=== PATIENT | male | born 1975 | race Two or more races ===

== ENCOUNTER 2016-10-14 12:48 | Observation (INO) | payer OTHER ==
[2016-10-14] MEDS ORDERED: NS 1000 ML 1,000 ML IV ONE ×2 (13:05→14:46)
--- NOTE | 2016-10-14 13:07 | DR.GENAD ---
HPI - PCP Primary Care Physician: Mark AZUL - HPI Comment HPI Comment: PATIENT WENT TO SEE AERODYNAMIC CONSULTANT DR. ZUNIGA. HE REFER PATIENT TO ED FOR FORTHER EVALUATION. HE IS HAVING DYSPHAGIA CAUSING HIM NOT TO EAT. WAS DRINKING POORLY AND NOW NOT DRINKING. ON DIFLUCAN AND MEDROL DOSE PACK. EYES ARE RED AND PAINFULL. NO FEVER. ILLNESS STARTED AFTER ASTHMA ATTACK RECENT. SEE NURSING NOTE. - Complaint/Symptoms Chief Complaint Doctors Comments: SORE THROAT, DYSPHAGIA AND BILATERAL EYE REDNESS AND PAIN TIMES SEVERAL DAYS. Chief Complaint:: PT. HAD AN ASTHMA ATTACK LAST WEEK AND USED HIS INHALERS. PT. THEN GOT THRUSH MONDAY. PT. WAS PLACED ON DIFLUCAN FOR THRUSH AND IT HAS WORSENED. PT. WENT TO THE EYE DOCTOR TODAY AND WAS SENT TO THE ER. PT. UNABLE TO EAT/DRINK AND HAS LOST 15 LBS IN 10 DAYS. - Nurses notes reviewed Nurses Notes Review: Yes - Source History Provided: Patient - Mode of Arrival Mode of Arrival: Ambulatory - Timing Onset of Chief Complaint: 10/10/16 Came on: Suddenly - Duration Duration: Constant Duration: Days - Severity Severity: Severe PMH - PMH Past Medical History: Yes Past Medical History: Asthma Past Surgical History: Yes Surgical History: Other Past Surgical History Comment: DEVIATED SEPTUM REPAIR, SINUS SURGERY X 4 - Family History History of Family Medical Conditions: No - Social History Does patient currently use any type of tobacco product: Yes Have you used tobacco products in the last 12 months: Yes Type of Tobacco Use: Cigarettes Does any household member use tobacco: No Alcohol Use: None Do you use any recreational Drugs:: No Lives With: Significant Other Lives Where: Home - infectious screening In the last 2 months have you had wt loss of >10#?: NO Have you had fever, night sweats or hemotysis?: No Have you traveled outside the country in the last 6 months?: No Isolation: Standard ROS - Review of Systems Constitutional: Weakness, Fatigue. negative: Chills, Fever Eyes: Eye Pain, Other (BILATERAL REDNESS OF EYES.) ENTM: Mouth Pain (PATIENT SPITTING MUCOUS AND SALIVA.), Throat Pain, Throat Swelling. negative: Ear Pain, Nose Discharge, Nose Congestion Respiratoy: Non-Productive Cough. negative: Productive Cough, Short of Breath, Wheezing, Hemoptysis Cardiovascular: Palpitations. negative: Chest Pain, Edema Gastrointestinal/Abdominal: Other (SPITTING MUCOUS AND SALIVA). negative: Abdominal Pain, Diarrhea, Nausea, Vomiting Genitourinary: No Symptoms Reported Neurological: Weakness Musculoskeletal: Muscle Pain Integumentary: No Symptoms Reported Hematologic/Lymphatic: No Symptoms Reported Endocrine: No Symptoms Reported All Other Systems: Reviewed and Negative PE - Vital Signs Vitals: Temperature 98.3 F Pulse Rate [Left Radial] 114 Pulse Rate 135 Respiratory Rate 17 Blood Pressure 131/87 O2 Sat by Pulse Oximetry 97 - General Limitations: No Limitations General Appearance: Alert - Head Head Exam: Normal Inspection - Eyes Eye exam: PERRL, EOMI, Conjunctival Injection (BILATERAL) - ENT ENT Exam: Normal External Ear Exam External Ear Exam: Normal External Inspection TM/Canal Exam: Bilateral Normal Nose Exam: Normal Nose Exam Mouth Exam: Normal Inspection Throat Exam: Tonsillar Erythema, Tonsillomegaly, Other (THROAT AND MOUTH WITH WHITISH COLORATION.). negative: Tonsillar Exudate - Neck Neck Exam: Trachea Midline. negative: Tenderness, Meningismus, Lymphadenopathy - Chest Chest Inspection: Symmetric Chest Wall Rise - Respiratory Respiratory Exam: Normal Lung Sounds Bilat Respiratory Exam: Bilateral Clear to Auscultation - Cardiovascular Cardiovascular Exam: Normal Rhythm, Tachycardia, Normal Heart Sounds - Abdominal Exam Abdominal Exam: Normal Inspection - Extremities Extremities Exam: Normal Inspection - Back Back Exam: Normal Inspection - Neurologic Neurological Exam: Alert, Oriented X3 - Psychiatric Psychiatric Exam: Normal Affect, Normal Mood - Skin Skin Exam: Dry MDM - Additional Information Additional Information Obtained From: Family - Differential Diagnosis Differential Diagnosis: THRUSH THROAT, DYSPHAGIA, DEHYDRATION, Course - Treatment Treatment: SEE ORDEDRS. - Education/Counseling Education/Counseling: Patient, Family, Education Educated On: Treatment, Diagnosis ROR - Labs Reviewed Laboratory Results Reviewed?: Yes Result Diagrams: 10/14/16 13:15 10/14/16 13:15 Laboratory: WBC 22.9 X10^3/uL (3.6-10.0) H* 10/14/16 13:15 RBC 5.38 X10^6/uL (4.7-6.0) 10/14/16 13:15 Hgb 17.5 g/dL (13.5-18.0) 10/14/16 13:15 Hct 49.3 % (42.0-54.0) 10/14/16 13:15 MCV 91.6 fL (80.0-100.0) 10/14/16 13:15 MCH 32.5 pg (27.0-34.0) 10/14/16 13:15 MCHC 35.5 g/dL (33.0-35.0) H 10/14/16 13:15 RDW 13.8 % (11.6-16.5) 10/14/16 13:15 Plt Count 459 X10^3/uL (150.0-450.0) H 10/14/16 13:15 Plt Count Comment Adequate (ADEQUATE) 10/14/16 13:15 MPV 7.1 fL (7.4-11.0) L 10/14/16 13:15 Neut % 81.4 % (42.0-75.0) H 10/14/16 13:15 Lymph % 8.1 % (21.0-51.0) L 10/14/16 13:15 [place] % 10.1 % (0.0-13.0) 10/14/16 13:15 Eos % 0.1 % (0.9-2.9) L 10/14/16 13:15 Baso % 0.3 % (0.2-1.0) 10/14/16 13:15 Neut # 18.6 x10^3/uL (2.2-4.8) H 10/14/16 13:15 Lymph # 1.8 X10^3/uL (1.3-2.9) 10/14/16 13:15 [place] # 2.3 x10^3/uL (0.3-0.8) H 10/14/16 13:15 Eos # 0.0 x10^3/uL (0.0-0.2) 10/14/16 13:15 Baso # 0.1 X10^3/uL (0.0-0.1) 10/14/16 13:15 Absolute Nucleated RBC 0.3 /100WBC 10/14/16 13:15 Total Counted 100 10/14/16 13:15 Neutrophils % (Manual) 77 % (39-76) H 10/14/16 13:15 Band Neutrophils % 12 % (0-10) H 10/14/16 13:15 Lymphocytes % (Manual) 4 % (13-43) L 10/14/16 13:15 Monocytes % (Manual) 5 % (4-9) 10/14/16 13:15 Eosinophils % (Manual) 1 % (0-6) 10/14/16 13:15 Basophils % (Manual) 1 % (0-1) 10/14/16 13:15 Plt Morphology Comment Normal (NORMAL) 10/14/16 13:15 RBC Morphology Normal (NORMAL) 10/14/16 13:15 Sodium 132 mmol/L (136-145) L 10/14/16 13:15 Corrected Sodium 132 mmol/L (136-145) L 10/14/16 13:15 Potassium 4.3 mmol/L (3.5-5.1) 10/14/16 13:15 Chloride 94 mmol/L (98-107) L 10/14/16 13:15 Carbon Dioxide 19.8 mmol/L (21-32) L 10/14/16 13:15 BUN 32 mg/dL (7-18) H 10/14/16 13:15 Creatinine 0.98 mg/dL (0.70-1.30) 10/14/16 13:15 Est GFR (MDRD) Af Amer > 60 (>60) 10/14/16 13:15 Est GFR (MDRD) Non-Af > 60 (>60) 10/14/16 13:15 Glucose 116 mg/dL (65-99) H 10/14/16 13:15 Calcium 9.4 mg/dL (8.5-10.1) 10/14/16 13:15 Corrected Calcium TNP 10/14/16 13:15 Total Bilirubin 0.80 mg/dL (0.2-1.0) 10/14/16 13:15 AST 20 Units/L (15-37) 10/14/16 13:15 ALT 44 Units/L (12-78) 10/14/16 13:15 Alkaline Phosphatase 107 Units/L (46-116) 10/14/16 13:15 Total Protein 9.1 g/dL (6.4-8.2) H 10/14/16 13:15 Albumin 3.6 g/dL (3.4-5.0) 10/14/16 13:15 Globulin 5.5 g/dL (2.5-4.5) H 10/14/16 13:15 Albumin/Globulin Ratio 0.7 Ratio (1.1-2.1) L 10/14/16 13:15 Streptococcus Screen Negative (NEGATIVE) 10/14/16 13:20 - Diagnosis Discharge Problem: Halle albicans infection, Dehydration Dysphagia Qualifiers: Dysphagia type: oropharyngeal phase Qualified Code(s): R13.12 - Dysphagia, oropharyngeal phase Conjunctivitis Qualifiers: Conjunctivitis type: acute Acute conjunctivitis type: unspecified Laterality: bilateral Qualified Code(s): H10.33 - Unspecified acute conjunctivitis, bilateral - Discharge Plan Condition: Stable - Follow ups/Referrals Follow ups/Referrals: CHANNING AZUL [Primary Care Provider] - 3 days - Instructions
[2016-10-14] MEDS ORDERED: NS 1000 ML 1,000 ML ONE ×2 (13:25→14:47)
[2016-10-14 13:43] LABS: BASOPHILS # (AUTO) 0.1 X10^3/uL (0.0-0.1); BASOPHILS % (AUTO) 0.3 % (0.2-1.0); EOSINOPHILS % (AUTO) 0.1 % (0.9-2.9); HEMATOCRIT 49.3 % (42.0-54.0); HEMOGLOBIN 17.5 g/dL (13.5-18.0); LYMPHOCYTES # (AUTO) 1.8 X10^3/uL (1.3-2.9); LYMPHOCYTES % (AUTO) 8.1 % (21.0-51.0); MEAN CORPUSCULAR HEMOGLOBIN 32.5 pg (27.0-34.0); MEAN CORPUSCULAR HGB CONC 35.5 g/dL (33.0-35.0); MEAN CORPUSCULAR VOLUME 91.6 fL (80.0-100.0); MEAN PLATELET VOLUME 7.1 fL (7.4-11.0); MONOCYTES # (AUTO) 2.3 x10^3/uL (0.3-0.8); MONOCYTES % (AUTO) 10.1 % (0.0-13.0); NEUTROPHILS # (AUTO) 18.6 x10^3/uL (2.2-4.8); NEUTROPHILS % (AUTO) 81.4 % (42.0-75.0); PLATELET COUNT 459 X10^3/uL (150.0-450.0); RED BLOOD COUNT 5.38 X10^6/uL (4.7-6.0); RED CELL DISTRIBUTION WIDTH 13.8 % (11.6-16.5)
[2016-10-14 13:53] LABS: BLOOD UREA NITROGEN 32 mg/dL (7-18); CALCIUM 9.4 mg/dL (8.5-10.1); CARBON DIOXIDE 19.8 mmol/L (21-32); CHLORIDE 94 mmol/L (98-107); COR NA(FOR HYPERGLY) 132 mmol/L (136-145); CREATININE 0.98 mg/dL (0.70-1.30); GLUCOSE 116 mg/dL (65-99); SODIUM 132 mmol/L (136-145); eGFR BLACK RACES > 60 (>60); eGFR NON BLACK RACES > 60 (>60)
[2016-10-14 13:55] LABS: WHITE BLOOD COUNT 22.9 X10^3/uL (3.6-10.0)
[2016-10-14 13:59] LABS: BAND NEUTROPHILS % 12 % (0-10); BASOPHILS % (MANUAL) 1 % (0-1)
[2016-10-14 14:00] LABS: PLATELET MORPHOLOGY COMMENT NORMAL (NORMAL)
[2016-10-14] MEDS ORDERED: DEMEROL INJ IVP ONE (14:05)
[2016-10-14] MEDS ORDERED: ZOFRAN INJ 4 MG VIAL IVP ONE (14:05)
[2016-10-14] MEDS ORDERED: ZOFRAN INJ 4 MG VIAL ONE (14:11)
[2016-10-14] MEDS ORDERED: DEMEROL INJ ONE (14:11)
[2016-10-14 14:25] LABS: ALANINE AMINOTRANSFERASE 44 Units/L (12-78); ALBUMIN 3.6 g/dL (3.4-5.0); ALKALINE PHOSPHATASE 107 Units/L (46-116); ASPARTATE AMINO TRANSFERASE 20 Units/L (15-37); TOTAL PROTEIN 9.1 g/dL (6.4-8.2)
[2016-10-14] MEDS ORDERED: SOLU-Medrol 125 MG VIAL ONE (14:52)
[2016-10-14] MEDS ORDERED: ZOFRAN INJ 4 MG VIAL IVP PRN (16:24)
[2016-10-14 16:29] LABS: MONOTEST NEGATIVE (NEGATIVE)
[2016-10-14] MEDS ORDERED: NS 1000 ML 1,000 ML IV SCH (17:00)
[2016-10-14 17:29] LABS: BILIRUBIN,URINE 1+ (NEGATIVE); BLOOD/HEMOGLOBIN,URINE 1+ (NEGATIVE); GLUCOSE, URINE NEGATIVE (NEGATIVE); KETONES,URINE 4+ (NEGATIVE); LEUKOCYTE ESTERASE ,URINE NEGATIVE (NEGATIVE); NITRITES,URINE NEGATIVE (NEGATIVE); PROTEIN,URINE 2+ (NEGATIVE); UROBILINOGEN,URINE 1+ (NORMAL)
[2016-10-14 17:47] LABS: AMORPHOUS SEDIMENT,UR 1+ /HPF (NEGATIVE); APPEARANCE,URINE CLEAR (CLEAR); BACTERIA,URINE TRACE /HPF (NEGATIVE); COLOR,URINE AMBER (YELLOW); GRANULAR CASTS,URINE FEW /LPF (NEGATIVE); HYALINE CASTS, URINE MANY /LPF (NEGATIVE); MUCUS,URINE FEW /HPF (NEGATIVE); SQUAMOUS EPITHELIAL CELL,UR MODERATE /HPF (NEGATIVE)
[2016-10-14] MEDS: CLEOCIN 600 MG IV PREMIX 600 MG/50 ML BAG IV SCH ×3 (18:39→22:20)
[2016-10-14] MEDS: NYSTATIN SUSP PO SCH ×2 (18:40→21:25)
[2016-10-14] MEDS: ARTIFICIAL TEARS DROPS AFFEYE SCH ×2 (18:40→21:46)
[2016-10-14 19:53] LABS: FREE T4 (FREE THYROXINE) 1.86 ng/dL (0.76-1.46)
[2016-10-14 19:56] LABS: TSH (3RD GENERATION) 0.077 uIU/mL (0.358-3.74)
[2016-10-14] MEDS ORDERED: DIFLUCAN 200 MG IV PREMIX* 200 MG/100 ML BAG IV SCH ×2 (21:00→22:00)
[2016-10-14] MEDS ORDERED: SOLU-Medrol 40 MG VIAL IVP SCH (22:00)
[2016-10-14] MEDS ORDERED: DIFLUCAN 200 MG IV PREMIX* 200 MG/100 ML BAG IV ONE (23:00)
[2016-10-14] MEDS: ROBITUSSIN DM PO PRN (23:41)
[2016-10-14] MEDS: DEMEROL INJ IVP PRN (23:44)
[2016-10-15] MEDS: NS 1000 ML 1,000 ML IV SCH ×2 (04:18→17:33)
[2016-10-15] MEDS: ROBITUSSIN DM PO PRN (05:01)
[2016-10-15 05:45] LABS: ALANINE AMINOTRANSFERASE 35 Units/L (12-78); ALBUMIN 2.8 g/dL (3.4-5.0); ALKALINE PHOSPHATASE 98 Units/L (46-116); ASPARTATE AMINO TRANSFERASE 19 Units/L (15-37); BLOOD UREA NITROGEN 18 mg/dL (7-18); CALCIUM 8.7 mg/dL (8.5-10.1); CARBON DIOXIDE 23.5 mmol/L (21-32); CHLORIDE 103 mmol/L (98-107); COR CA(FOR HYPOALB) 9.7 mg/dL (8.5-10.1); COR NA(FOR HYPERGLY) 139 mmol/L (136-145); CREATININE 0.68 mg/dL (0.70-1.30); GLUCOSE 139 mg/dL (65-99); SODIUM 138 mmol/L (136-145); TOTAL PROTEIN 7.5 g/dL (6.4-8.2); eGFR BLACK RACES > 60 (>60); eGFR NON BLACK RACES > 60 (>60)
[2016-10-15] MEDS: CLEOCIN 600 MG IV PREMIX 600 MG/50 ML BAG IV SCH ×3 (05:46→21:35)
[2016-10-15] MEDS: DEMEROL INJ IVP PRN ×3 (05:47→21:37)
[2016-10-15 06:01] LABS: BASOPHILS % (AUTO) 0.2 % (0.2-1.0); HEMATOCRIT 43.8 % (42.0-54.0); LYMPHOCYTES # (AUTO) 1.4 X10^3/uL (1.3-2.9); LYMPHOCYTES % (AUTO) 7.6 % (21.0-51.0); MEAN CORPUSCULAR HEMOGLOBIN 31.3 pg (27.0-34.0); MEAN CORPUSCULAR HGB CONC 34.2 g/dL (33.0-35.0); MEAN CORPUSCULAR VOLUME 91.5 fL (80.0-100.0); MONOCYTES # (AUTO) 1.1 x10^3/uL (0.3-0.8); MONOCYTES % (AUTO) 6.2 % (0.0-13.0); NEUTROPHILS # (AUTO) 15.5 x10^3/uL (2.2-4.8); RED BLOOD COUNT 4.78 X10^6/uL (4.7-6.0); RED CELL DISTRIBUTION WIDTH 13.6 % (11.6-16.5); WHITE BLOOD COUNT 18.1 X10^3/uL (3.6-10.0)
--- NOTE | 2016-10-15 06:49 | RAD ---
Chest PA and lateral Indication: Cough. Findings: There is no pneumothorax or effusion. There is no consolidation. Heart size normal. Lungs are hyperinflated. Impression: COPD change without other acute abnormality. Reported By:
[2016-10-15 06:52] LABS: MEAN PLATELET VOLUME 7.4 fL (7.4-11.0); PLATELET COUNT 461 X10^3/uL (150.0-450.0)
[2016-10-15] MEDS ORDERED: DIFLUCAN 200 MG IV PREMIX* 200 MG/100 ML BAG IV SCH (09:00)
[2016-10-15 09:30] LABS: PLATELET MORPHOLOGY COMMENT NORMAL (NORMAL)
[2016-10-15] MEDS: NYSTATIN SUSP PO SCH ×4 (09:48→21:36)
[2016-10-15] MEDS: DIFLUCAN 200 MG IV PREMIX* 200 MG/100 ML BAG IV SCH (09:52)
[2016-10-15] MEDS: ARTIFICIAL TEARS DROPS AFFEYE SCH ×4 (09:55→21:36)
[2016-10-15] MEDS: NYSTATIN POWDER TOP SCH ×2 (10:16→21:35)
[2016-10-15] MEDS: TUSSIONEX PENNKINETIC SUSP PO PRN (10:16)
[2016-10-15] MEDS ORDERED: PATIENT'S HOME MEDICATION (Misc Home Med 1 DROP) EACHEYE SCH (14:00)
[2016-10-15] MEDS ORDERED: DUONEB 0.5 MG/3 MG ONE (16:34)
[2016-10-15] MEDS: PRED FORTE 1 % EACHEYE SCH ×3 (16:48→21:35)
[2016-10-15] MEDS ORDERED: DUONEB 0.5 MG/3 MG NEB PRN (16:51)
[2016-10-15] MEDS: DUONEB 0.5 MG/3 MG NEB SCH (17:13)
[2016-10-15] MEDS: COLACE CAP 100 MG PO SCH (21:35)
[2016-10-15] MEDS: MILK OF MAGNESIA PO SCH (21:35)
[2016-10-16] MEDS: DUONEB 0.5 MG/3 MG NEB SCH ×4 (00:32→17:06)
[2016-10-16] MEDS: CLEOCIN 600 MG IV PREMIX 600 MG/50 ML BAG IV SCH ×3 (06:12→21:33)
[2016-10-16 06:30] LABS: BASOPHILS # (AUTO) 0.1 X10^3/uL (0.0-0.1); BASOPHILS % (AUTO) 0.6 % (0.2-1.0); EOSINOPHILS % (AUTO) 0.1 % (0.9-2.9); HEMATOCRIT 40.7 % (42.0-54.0); HEMOGLOBIN 14.1 g/dL (13.5-18.0); LYMPHOCYTES # (AUTO) 2.3 X10^3/uL (1.3-2.9); LYMPHOCYTES % (AUTO) 17.3 % (21.0-51.0); MEAN CORPUSCULAR HEMOGLOBIN 31.3 pg (27.0-34.0); MEAN CORPUSCULAR HGB CONC 34.7 g/dL (33.0-35.0); MEAN CORPUSCULAR VOLUME 90.1 fL (80.0-100.0); MEAN PLATELET VOLUME 7.8 fL (7.4-11.0); MONOCYTES # (AUTO) 1.9 x10^3/uL (0.3-0.8); MONOCYTES % (AUTO) 14.3 % (0.0-13.0); NEUTROPHILS # (AUTO) 8.9 x10^3/uL (2.2-4.8); NEUTROPHILS % (AUTO) 67.7 % (42.0-75.0); PLATELET COUNT 430 X10^3/uL (150.0-450.0); RED BLOOD COUNT 4.52 X10^6/uL (4.7-6.0); RED CELL DISTRIBUTION WIDTH 13.8 % (11.6-16.5); WHITE BLOOD COUNT 13.1 X10^3/uL (3.6-10.0)
[2016-10-16 07:25] LABS: ALANINE AMINOTRANSFERASE 37 Units/L (12-78); ALBUMIN 2.8 g/dL (3.4-5.0); ALKALINE PHOSPHATASE 79 Units/L (46-116); ASPARTATE AMINO TRANSFERASE 23 Units/L (15-37); BLOOD UREA NITROGEN 16 mg/dL (7-18); CALCIUM 8.1 mg/dL (8.5-10.1); CARBON DIOXIDE 29.3 mmol/L (21-32); CHLORIDE 102 mmol/L (98-107); COR CA(FOR HYPOALB) 9.1 mg/dL (8.5-10.1); CREATININE 0.77 mg/dL (0.70-1.30); GLUCOSE 94 mg/dL (65-99); SODIUM 141 mmol/L (136-145); TOTAL PROTEIN 7.1 g/dL (6.4-8.2); eGFR BLACK RACES > 60 (>60); eGFR NON BLACK RACES > 60 (>60)
[2016-10-16] MEDS: PRED FORTE 1 % EACHEYE SCH ×4 (09:08→21:41)
[2016-10-16] MEDS: ARTIFICIAL TEARS DROPS AFFEYE SCH ×4 (09:08→21:42)
[2016-10-16] MEDS: NYSTATIN POWDER TOP SCH ×2 (09:09→21:42)
[2016-10-16] MEDS: DIFLUCAN 200 MG IV PREMIX* 200 MG/100 ML BAG IV SCH (09:09)
[2016-10-16] MEDS: NYSTATIN SUSP PO SCH ×4 (09:09→21:33)
[2016-10-16] MEDS: TUSSIONEX PENNKINETIC SUSP PO PRN (09:12)
[2016-10-16] MEDS: NS 1000 ML 1,000 ML IV SCH ×2 (09:12→22:26)
[2016-10-16] MEDS: ROBITUSSIN DM PO PRN (13:12)
[2016-10-16] MEDS: MILK OF MAGNESIA PO SCH (21:33)
[2016-10-16] MEDS: COLACE CAP 100 MG PO SCH (21:34)
[2016-10-16] MEDS: DEMEROL INJ IVP PRN (21:37)
[2016-10-17] MEDS: DUONEB 0.5 MG/3 MG NEB SCH ×4 (00:51→17:12)
[2016-10-17 05:21] LABS: ALANINE AMINOTRANSFERASE 34 Units/L (12-78); ALBUMIN 2.7 g/dL (3.4-5.0); ALKALINE PHOSPHATASE 74 Units/L (46-116); ASPARTATE AMINO TRANSFERASE 18 Units/L (15-37); BLOOD UREA NITROGEN 9 mg/dL (7-18); CARBON DIOXIDE 27.7 mmol/L (21-32); CHLORIDE 98 mmol/L (98-107); CREATININE 0.67 mg/dL (0.70-1.30); GLUCOSE 96 mg/dL (65-99); SODIUM 135 mmol/L (136-145); TOTAL PROTEIN 6.9 g/dL (6.4-8.2); eGFR BLACK RACES > 60 (>60); eGFR NON BLACK RACES > 60 (>60)
[2016-10-17 05:56] LABS: BASOPHILS % (AUTO) 0.2 % (0.2-1.0); EOSINOPHILS % (AUTO) 0.3 % (0.9-2.9); HEMATOCRIT 39.6 % (42.0-54.0); HEMOGLOBIN 13.8 g/dL (13.5-18.0); LYMPHOCYTES # (AUTO) 2.6 X10^3/uL (1.3-2.9); MEAN CORPUSCULAR HEMOGLOBIN 31.1 pg (27.0-34.0); MEAN CORPUSCULAR HGB CONC 34.7 g/dL (33.0-35.0); MEAN CORPUSCULAR VOLUME 89.5 fL (80.0-100.0); MEAN PLATELET VOLUME 8.3 fL (7.4-11.0); MONOCYTES # (AUTO) 1.9 x10^3/uL (0.3-0.8); MONOCYTES % (AUTO) 16.4 % (0.0-13.0); NEUTROPHILS # (AUTO) 7.1 x10^3/uL (2.2-4.8); NEUTROPHILS % (AUTO) 61.1 % (42.0-75.0); PLATELET COUNT 303 X10^3/uL (150.0-450.0); RED BLOOD COUNT 4.43 X10^6/uL (4.7-6.0); RED CELL DISTRIBUTION WIDTH 13.9 % (11.6-16.5); WHITE BLOOD COUNT 11.6 X10^3/uL (3.6-10.0)
[2016-10-17] MEDS: CLEOCIN 600 MG IV PREMIX 600 MG/50 ML BAG IV SCH ×3 (06:14→21:44)
--- NOTE | 2016-10-17 07:23 | RAD ---
HISTORY: Cough, congestion Study: Chest one view Comparison: October 14, 2016 Findings: The heart is within normal limits in size. The rolando are normal with the exception of some calcified nodes consistent with old granulomatous disease. The lungs are generally hyperinflated with the exce ption of a focus of subsegmental atelectasis in the left lung base. Mild interstitial lung changes a re present. No alveolar infiltrates or pleural effusions are identified. The bony thorax is unremark able. IMPRESSION: Hyperinflation with mild interstitial lung disease most consistent with COPD in the appropriate clin ical setting Subsegmental atelectasis left lung base Reported By:
[2016-10-17] MEDS: DIFLUCAN 200 MG IV PREMIX* 200 MG/100 ML BAG IV SCH (08:23)
[2016-10-17] MEDS: NYSTATIN SUSP PO SCH ×4 (08:23→21:47)
[2016-10-17] MEDS: PRED FORTE 1 % EACHEYE SCH ×4 (08:23→21:44)
[2016-10-17] MEDS: NYSTATIN POWDER TOP SCH ×2 (08:24→21:47)
[2016-10-17] MEDS: ARTIFICIAL TEARS DROPS AFFEYE SCH ×4 (08:24→21:43)
[2016-10-17] MEDS: NS 1000 ML 1,000 ML IV SCH (09:07)
[2016-10-17 17:42] VITALS: BMI 26.2
--- NOTE | 2016-10-17 18:20 | PCM.PROG ---
Progress Note - Progress Note for Day of Date: 10/17/16 - Subjective Subjective: 40M ADMITTED FROM TREATMENT OF SEVERE ORAL AND PHARYNGEAL STOMATITIS , THRUSH WITH DEHYDRATION. PT ALSO HAS BILATERAL CONJUNCTIVITIS. PT HAD BLOOD THROAT AND SPUTUM CULTURES ON ADMISSION. CURRENT TREATMENT OF ANTI-FUNGALS AND IV ATBX. PLAN TO CONTINUE CURRENT COURSE OF TREATMENT. PT CO MILD IMPROVEMENT THIS AM, REQUESTING TO BE D/C HOME. PLAN TO RE-EVALUATE FOR DC Q AM, WILL CONTINUE WITH SOFT DIET AT TOLERATED - Past Medical Family Social History Past Med/Fam/Surg Hx: No changes since H&P Allergies: Allergies No Known Drug Allergies Allergy (Verified 10/14/16 12:53) - Review of Systems ROS: No change since H&P - Vital Signs and I&O's Vital Signs: Temperature 99.6 F Pulse Rate [Right Brachial] 100 Pulse Rate [Left Radial] 82 Pulse Rate 80 Respiratory Rate 19 Blood Pressure [Right Arm] 152/98 O2 Sat by Pulse Oximetry 93 Intake and Output: Intake & Output 10/15/16 10/16/16 10/17/16 10/18/16 11:59 11:59 11:59 11:59 Intake Total 2469 2056 2727 1979 Output Total 500 Balance 1969 2056 2727 1979 - Physical Exam Oriented: Normal Eyes: Discharge, Redness Ear: Normal Nose: Normal Throat: Red, Exudate Respiratory: Wheezes : Normal Auscultation: Bowel Sounds: Normal Palpation: Normal Tenderness: Normal Skin: Normal Musculoskeletal: Normal Psychiatric: Anxiety Speech Pattern: Clear, Appropriate - Laboratory and Diagnostics Result Diagrams: 10/17/16 03:35 10/17/16 03:35 Labs: 10/14/16 17:14 Urine,Clean Catch Urine Culture - Final Laboratory WBC 11.6 X10^3/uL (3.6-10.0) H 10/17/16 03:35 RBC 4.43 X10^6/uL (4.7-6.0) L 10/17/16 03:35 Hgb 13.8 g/dL (13.5-18.0) 10/17/16 03:35 Hct 39.6 % (42.0-54.0) L 10/17/16 03:35 MCV 89.5 fL (80.0-100.0) 10/17/16 03:35 MCH 31.1 pg (27.0-34.0) 10/17/16 03:35 MCHC 34.7 g/dL (33.0-35.0) 10/17/16 03:35 RDW 13.9 % (11.6-16.5) 10/17/16 03:35 Plt Count 303 X10^3/uL (150.0-450.0) 10/17/16 03:35 Plt Count Comment Adequate (ADEQUATE) 10/15/16 05:00 MPV 8.3 fL (7.4-11.0) 10/17/16 03:35 Neut % 61.1 % (42.0-75.0) 10/17/16 03:35 Lymph % 22.0 % (21.0-51.0) 10/17/16 03:35 [place] % 16.4 % (0.0-13.0) H 10/17/16 03:35 Eos % 0.3 % (0.9-2.9) L 10/17/16 03:35 Baso % 0.2 % (0.2-1.0) 10/17/16 03:35 Neut # 7.1 x10^3/uL (2.2-4.8) H 10/17/16 03:35 Lymph # 2.6 X10^3/uL (1.3-2.9) 10/17/16 03:35 [place] # 1.9 x10^3/uL (0.3-0.8) H 10/17/16 03:35 Eos # 0.0 x10^3/uL (0.0-0.2) 10/17/16 03:35 Baso # 0.0 X10^3/uL (0.0-0.1) 10/17/16 03:35 Absolute Nucleated RBC 0.1 /100WBC 10/17/16 03:35 Total Counted 100 10/14/16 13:15 Neutrophils % (Manual) 77 % (39-76) H 10/14/16 13:15 Band Neutrophils % 12 % (0-10) H 10/14/16 13:15 Lymphocytes % (Manual) 4 % (13-43) L 10/14/16 13:15 Monocytes % (Manual) 5 % (4-9) 10/14/16 13:15 Eosinophils % (Manual) 1 % (0-6) 10/14/16 13:15 Basophils % (Manual) 1 % (0-1) 10/14/16 13:15 Plt Morphology Comment Normal (NORMAL) 10/15/16 05:00 RBC Morphology Normal (NORMAL) 10/15/16 05:00 ESR 63 MM/HOUR (0-15) H 10/14/16 19:25 Sodium 135 mmol/L (136-145) L 10/17/16 03:35 Corrected Sodium TNP 10/17/16 03:35 Potassium 3.5 mmol/L (3.5-5.1) 10/17/16 03:35 Chloride 98 mmol/L (98-107) 10/17/16 03:35 Carbon Dioxide 27.7 mmol/L (21-32) 10/17/16 03:35 BUN 9 mg/dL (7-18) 10/17/16 03:35 Creatinine 0.67 mg/dL (0.70-1.30) L 10/17/16 03:35 Est GFR (MDRD) Af Amer > 60 (>60) 10/17/16 03:35 Est GFR (MDRD) Non-Af > 60 (>60) 10/17/16 03:35 Glucose 96 mg/dL (65-99) 10/17/16 03:35 Lactic Acid 1.0 mmol/L (0.4-2.0) 10/15/16 08:54 Calcium 8.0 mg/dL (8.5-10.1) L 10/17/16 03:35 Corrected Calcium 9.0 mg/dL (8.5-10.1) 10/17/16 03:35 Total Bilirubin 0.70 mg/dL (0.2-1.0) 10/17/16 03:35 AST 18 Units/L (15-37) 10/17/16 03:35 ALT 34 Units/L (12-78) 10/17/16 03:35 Alkaline Phosphatase 74 Units/L (46-116) 10/17/16 03:35 Creatine Kinase 220 Units/L (39-308) 10/14/16 19:25 C-Reactive Protein 183.00 mg/L (0-3.0) H 10/14/16 19:25 Total Protein 6.9 g/dL (6.4-8.2) 10/17/16 03:35 Albumin 2.7 g/dL (3.4-5.0) L 10/17/16 03:35 Globulin 4.2 g/dL (2.5-4.5) 10/17/16 03:35 Albumin/Globulin Ratio 0.6 Ratio (1.1-2.1) L 10/17/16 03:35 Free T4 1.86 ng/dL (0.76-1.46) H 10/14/16 19:25 TSH 3rd Generation 0.077 uIU/mL (0.358-3.74) L 10/14/16 19:25 Specimen Type Clean catch urine 10/14/16 17:14 Urine Color [place] (YELLOW) 10/14/16 17:14 Urine Appearance Clear (CLEAR) 10/14/16 17:14 Urine pH 6.0 (5.0 - 8.0) 10/14/16 17:14 Ur Specific [place] 1.025 (1.000-1.030) 10/14/16 17:14 Urine Protein 2+ (NEGATIVE) 10/14/16 17:14 Urine Glucose (UA) Negative (NEGATIVE) 10/14/16 17:14 Urine Ketones 4+ (NEGATIVE) 10/14/16 17:14 Urine Occult Blood 1+ (NEGATIVE) 10/14/16 17:14 Urine Nitrite Negative (NEGATIVE) 10/14/16 17:14 Urine Bilirubin 1+ (NEGATIVE) 10/14/16 17:14 Urine Urobilinogen 1+ (NORMAL) 10/14/16 17:14 Ur Leukocyte Esterase Negative (NEGATIVE) 10/14/16 17:14 Urine RBC 2-6 /HPF (NEGATIVE) 10/14/16 17:14 Urine WBC 0-1 /HPF (NEGATIVE) 10/14/16 17:14 Ur Squamous Epith Cells Moderate /HPF (NEGATIVE) 10/14/16 17:14 Amorphous Sediment 1+ /HPF (NEGATIVE) 10/14/16 17:14 Urine Bacteria Trace /HPF (NEGATIVE) 10/14/16 17:14 Hyaline Casts Many /LPF (NEGATIVE) 10/14/16 17:14 Granular Casts Few /LPF (NEGATIVE) 10/14/16 17:14 Urine Mucus Few /HPF (NEGATIVE) 10/14/16 17:14 Ur Culture Indicated? Yes/culture set up 10/14/16 17:14 Monoscreen Negative (NEGATIVE) 10/14/16 13:15 Streptococcus Screen Negative (NEGATIVE) 10/14/16 13:20 - Plan (1) Halle albicans infection Status: Acute Plan: CONTINUE DIFLUCAN AND [place]STATIN. PO HYDRATION, PAIN CONTROL. SUPPORTIVE CARE, ORAL HYGEINE. OPTH DROPS, CULTURES PENDING (2) Conjunctivitis Status: Acute Qualifiers: Conjunctivitis type: acute Blepharoconjunctivitis type: B Acute conjunctivitis type: unspecified Chronic conjunctivitis type: C Laterality: bilateral Qualified Code(s): H10.33 - Unspecified acute conjunctivitis, bilateral (3) Dehydration Status: Acute (4) Bronchitis Status: Acute
[2016-10-17] MEDS: VALTREX TAB 1 GM PO SCH ×2 (19:17→21:48)
[2016-10-17] MEDS: MILK OF MAGNESIA PO SCH (21:47)
[2016-10-17] MEDS: COLACE CAP 100 MG PO SCH (21:48)
[2016-10-17] MEDS: TUSSIONEX PENNKINETIC SUSP PO PRN (21:48)
[2016-10-17] MEDS: DEMEROL INJ IVP PRN (21:49)
[2016-10-18] MEDS: DUONEB 0.5 MG/3 MG NEB SCH ×2 (01:17→05:25)
[2016-10-18] MEDS: NS 1000 ML 1,000 ML IV SCH (01:34)
[2016-10-18] MEDS: CLEOCIN 600 MG IV PREMIX 600 MG/50 ML BAG IV SCH (05:42)
[2016-10-18] MEDS: VALTREX TAB 1 GM PO SCH (05:44)
[2016-10-18 06:04] LABS: ALANINE AMINOTRANSFERASE 36 Units/L (12-78); ALBUMIN 2.5 g/dL (3.4-5.0); ALKALINE PHOSPHATASE 77 Units/L (46-116); ASPARTATE AMINO TRANSFERASE 21 Units/L (15-37); BLOOD UREA NITROGEN 7 mg/dL (7-18); CALCIUM 8.1 mg/dL (8.5-10.1); CARBON DIOXIDE 27.2 mmol/L (21-32); CHLORIDE 99 mmol/L (98-107); COR CA(FOR HYPOALB) 9.3 mg/dL (8.5-10.1); CREATININE 0.63 mg/dL (0.70-1.30); GLUCOSE 87 mg/dL (65-99); SODIUM 134 mmol/L (136-145); eGFR BLACK RACES > 60 (>60); eGFR NON BLACK RACES > 60 (>60)
[2016-10-18 06:35] LABS: BASOPHILS % (AUTO) 0.3 % (0.2-1.0); EOSINOPHILS # (AUTO) 0.1 x10^3/uL (0.0-0.2); EOSINOPHILS % (AUTO) 1.5 % (0.9-2.9); HEMATOCRIT 39.7 % (42.0-54.0); HEMOGLOBIN 13.6 g/dL (13.5-18.0); LYMPHOCYTES # (AUTO) 2.3 X10^3/uL (1.3-2.9); LYMPHOCYTES % (AUTO) 23.2 % (21.0-51.0); MEAN CORPUSCULAR HEMOGLOBIN 31.5 pg (27.0-34.0); MEAN CORPUSCULAR HGB CONC 34.4 g/dL (33.0-35.0); MEAN CORPUSCULAR VOLUME 91.7 fL (80.0-100.0); MEAN PLATELET VOLUME 7.8 fL (7.4-11.0); MONOCYTES # (AUTO) 1.5 x10^3/uL (0.3-0.8); MONOCYTES % (AUTO) 14.7 % (0.0-13.0); NEUTROPHILS # (AUTO) 6.1 x10^3/uL (2.2-4.8); NEUTROPHILS % (AUTO) 60.3 % (42.0-75.0); PLATELET COUNT 418 X10^3/uL (150.0-450.0); RED BLOOD COUNT 4.33 X10^6/uL (4.7-6.0); RED CELL DISTRIBUTION WIDTH 13.8 % (11.6-16.5); WHITE BLOOD COUNT 10.1 X10^3/uL (3.6-10.0)
[2016-10-18] MEDS: NYSTATIN SUSP PO SCH (09:11)
[2016-10-18] MEDS: DIFLUCAN 200 MG IV PREMIX* 200 MG/100 ML BAG IV SCH (09:11)
[2016-10-18] MEDS: ARTIFICIAL TEARS DROPS AFFEYE SCH (09:12)
[2016-10-18] MEDS: NYSTATIN POWDER TOP SCH (09:12)
[2016-10-18] MEDS: PRED FORTE 1 % EACHEYE SCH (09:12)
[2016-10-18 12:40] VITALS: BP 137/96
== END 2016-10-18 12:30 | disposition home or self-care (01) ==
LOC: ER 13:10 → MED/SURG 16:18
PROVIDERS: ADMIT Internal Medicine; ATTEND Internal Medicine
DX: B37.89 Other sites of candidiasis (principal); R13.11 Dysphagia, oral phase; J20.8 Acute bronchitis due to other specified organisms; J45.901 Unspecified asthma with (acute) exacerbation; R94.31 Abnormal electrocardiogram [ECG] [EKG]; K21.9 Gastro-esophageal reflux disease without esophagitis; J44.9 Chronic obstructive pulmonary disease, unspecified; E86.0 Dehydration; H10.33 Unspecified acute conjunctivitis, bilateral
CPT/HCPCS: 36415; 71010; 71020; 80053; 81001; 82550; 83605; 84439; 84443; 85025; 85652; 86140; 86308; 86701; 87040; 87070; 87086; 87205; 87210; 87880; 93005; 93010; 94640; 94760; 96365; 96367; 96374; 96375; 99284; A4222; G0378; J0077; J1450; J2175; J2405; J2930; J7620